=== PATIENT | female | born 1965 | race Caucasian/White ===

== ENCOUNTER → 2021-01-23 15:31 | Outpatient (CLI) | payer BC, SELFPAY ==
--- NOTE | ~2021-01-23 | MM_ITS ---
EXAMINATION: MM screening [facility] BI w mamadou HISTORY: Screening mammogram TECHNIQUE: Craniocaudal and mediolateral oblique 3-D tomosynthesis images were obtained and synthetic 2-D images were generated. CAD analysis was submitted and interpreted. COMPARISON: 12/26/2019, 12/12/2018, 11/29/2017 BREAST PARENCHYMAL COMPOSITION: The breasts are heterogeneously dense, which may obscure small masses . FINDINGS: There is no evidence of suspicious mass, calcification, or architectural distortion to sugg est malignancy in either breast. There has been no suspicious interval change. IMPRESSION: 1. No mammographic evidence of malignancy. 2. Recommend routine screening mammography in one year. BI-RADS Category 1: Negative Reviewed, dictated and finalized at location A. MENT LETTERER
== END ==
PROVIDERS: Visit Provider Nurse Practitioner
DX: Z12.31 Encounter for screening mammogram for malignant neoplasm of breast (principal)
CPT/HCPCS: 77063; 77067

== ENCOUNTER → 2022-02-22 12:44 | Outpatient (CLI) | payer BC, SELFPAY ==
--- NOTE | ~2022-02-22 | MM_ITS ---
EXAMINATION: MM screening [facility] BI w mamadou HISTORY: Screening mammogram TECHNIQUE: Craniocaudal and mediolateral oblique 3-D tomosynthesis images were obtained and synthetic 2-D images were generated. CAD analysis was submitted and interpreted. COMPARISON: January 23, 2021, December 16, 2019, December 12, 2018 bilateral screening mammogram [facility] BREAST PARENCHYMAL COMPOSITION: The breasts are heterogeneously dense, which may obscure small masses . FINDINGS: There is no evidence of suspicious mass, calcification, or architectural distortion to sugg est malignancy in either breast. There has been no suspicious interval change. IMPRESSION: 1. No mammographic evidence of malignancy. 2. Recommend routine screening mammography in one year. BI-RADS Category 1: Negative Reviewed, dictated and finalized at location A.
== END ==
PROVIDERS: PCP Family Medicine; Visit Provider Obstetrics & Gynecology Gynecology
DX: Z12.31 Encounter for screening mammogram for malignant neoplasm of breast (principal)
CPT/HCPCS: 77063; 77067

== ENCOUNTER → 2022-03-27 13:12 | Outpatient (CLI) | payer BC, SELFPAY ==
--- NOTE | ~2022-03-27 | DEXA_ITS ---
Bone Density Report Name: DASHAWN OSBORN Age: 56 Sex: Female Ethnicity: White Date of : 1965 Indication: osteopenia; monitoring treatment; height loss; prior fracture; postmenopausal Referring Provider: Coleen, Rowan Study: Bone densitometry was performed. Exam Date: March 27, 2022 Accession number: [id number] Bone Density: Region BMD T-score Z-score Classification AP Spine (L1-L4) 1.058 0.1 1.4 Normal Femoral Neck (Left) 0.757 -0.8 0.4 Normal Total Hip (Left) 0.807 -1.1 -0.2 Osteopenia Femoral Neck (Right) 0.716 -1.2 0.0 Osteopenia Total Hip (Right) 0.790 -1.2 -0.4 Osteopenia Total Hip Mean 0.799 -1.2 -0.3 Osteopenia World Health Organization criteria for BMD impression classify patients as: Normal (T-score at or above -1.0), Osteopenia (T-score between -1.0 and -2.5), or Osteoporosis (T-score at or below -2.5). 10-year Fracture Risk: FRAX not reported because: Treated for osteoporosis Previous Exams: Region Exam Age BMD T-score BMD Change BMD Change Date g/cm2 vs Baseline vs Previous AP Spine(L1-L4) 03/27/2022 56 1.058 0.1 0.139 0.031* 12/12/2018 53 1.026 -0.2 0.107 0.049* 11/27/2016 51 0.977 -0.6 0.058 0.002 11/22/2014 49 0.975 -0.7 0.057 0.010 10/20/2012 47 0.966 -0.7 0.047 0.021 10/11/2010 45 0.945 -0.9 0.026 0.007 10/08/2008 43 0.938 -1.0 0.019 0.019 01/07/2003 37 0.919 -1.2 Total Hip(Left) 03/27/2022 56 0.807 -1.1 -0.031 0.019 12/12/2018 53 0.788 -1.3 -0.050 0.036* 11/27/2016 51 0.752 -1.6 -0.087 -0.012 11/22/2014 49 0.765 -1.5 -0.074 -0.007 10/20/2012 47 0.772 -1.4 -0.067 0.035* 10/11/2010 45 0.737 -1.7 -0.102 -0.006 10/08/2008 43 0.743 -1.6 -0.096 0.019 04/20/2004 38 0.724 -1.8 -0.115* -0.115* 01/07/2003 37 0.839 -0.8 Total Hip(Right) 03/27/2022 56 0.790 -1.2 0.064 0.025 12/12/2018 53 0.766 -1.4 0.039 0.022 11/27/2016 51 0.744 -1.6 0.018 0.002 11/22/2014 49 0.742 -1.6 0.016 0.018 10/20/2012 47 0.724 -1.8 -0.002 -0.018 10/11/2010 45 0.742 -1.6 0.016 0.017 10/08/2008 43 0.724 -1.8 -0.002 -0.004 04/20/2004 38 0.729 -1.7 0.002 0.002 01/07/2003 37 0.726 -1.8
== END ==
PROVIDERS: PCP Family Medicine; Visit Provider Nurse Practitioner
DX: Z13.820 Encounter for screening for osteoporosis (principal); M85.851 Other specified disorders of bone density and structure, right thigh; M85.852 Other specified disorders of bone density and structure, left thigh
CPT/HCPCS: 77080

== ENCOUNTER → 2022-05-31 16:55 | Outpatient (CLI) | payer BC, SELFPAY ==
--- NOTE | ~2022-05-31 | XR_ITS ---
XR chest 2V DATE: 05/31/2022 17:57 INDICATION: Cough TECHNIQUE: 2 views COMPARISON: None FINDINGS: Normal heart size. No hilar or mediastinal enlargement. There is moderate hyperinflation of the lungs. No pulmonary infiltrate or consolidation, pleural effusion or pulmonary vascular congesti on or pneumothorax is detected. Osteopenia. Mild levoscoliosis and degenerative spurring of the thoracic spine. IMPRESSION: Moderate hyperinflation; no active cardiopulmonary disease Reviewed, dictated and finalized at location B.
== END ==
PROVIDERS: PCP Family Medicine; Visit Provider Family Medicine
DX: R05.9 Cough, unspecified (principal); M41.9 Scoliosis, unspecified; M85.88 Other specified disorders of bone density and structure, other site
CPT/HCPCS: 71046

== ENCOUNTER 2022-06-13 01:12 | Observation (INO) | payer BC, SELFPAY ==
[2022-06-13] VITALS (20 sets, daily range): BP systolic 109–145; BP diastolic 26–89; PULSE 74–122; RESP 18–28; TEMP 36.1–37.1; O2SAT 93–100; BMI 27.4
--- NOTE | ~2022-06-13 | XR_ITS ---
EXAMINATION: XR chest 1V portable DATE: 06/13/2022 01:37 INDICATION: Cough. TECHNIQUE: A single frontal view of the chest was obtained. COMPARISON: Chest 2 views 05/31/2022 FINDINGS: The chest demonstrates clear lungs without pneumonia, pleural effusion, or pneumothorax. Th e heart size is normal. There is an old healed fracture of left clavicle. IMPRESSION: 1. No acute cardiopulmonary disease. Reviewed, dictated and finalized at location A.
[2022-06-13] MEDS: IPRATROPIUM BR 0.02% INH SOLN 0.5 MG/2.5 ML VIAL 1.5 MG INHALATION (01:43)
[2022-06-13] MEDS: ALBUTEROL SULFATE NEB 2.5 MG/3 ML INH 15 MG INHALATION (01:44)
--- NOTE | 2022-06-13 01:49 | ED.GENADULT ---
HPI - General Adult General Chief complaint: Upper Respiratory Infection Stated complaint: cough Time Seen by Provider: 06/13/22 01:20 History of Present Illness HPI narrative: Patient is a 56-year-old female who presents ER with cough. Patient diagnosed with COVID on 05/16/2022. She was placed on antivirals. She was doing well but then developed a cough later on. She was then on steroids. She has been using nebulizer at home. She is also been using an inhaler. She reports that she finished the steroids 3 days ago and then cough returned 2 days ago. Cough is been progressing throughout the day. Nonproductive. No fevers or chills or sweats. No sinus congestion or sore throat. No chest pain or chest pressure. Related Data Home Medications Medication Instructions Recorded Confirmed ergocalciferol (vitamin D2) 1,250 50,000 unit PO WEEKLY 12/09/19 06/13/22 mcg (50,000 unit) capsule (Vitamin D2) estradiol 1 mg tablet 1 mg PO DAILY 12/09/19 06/13/22 levothyroxine 50 mcg tablet 50 mcg PO DAILY 12/09/19 06/13/22 (Synthroid) medroxyprogesterone 5 mg tablet 5 mg PO DAILY 12/09/19 06/13/22 multivitamin 1 tablet PO DAILY 12/09/19 06/13/22 venlafaxine 37.5 mg tablet 37.5 mg PO DAILY 12/09/19 06/13/22 spironolactone 50 mg tablet 100 mg PO DAILY 02/14/22 06/13/22 Allergies Allergy/AdvReac Type Severity Reaction Status Date / Time No Known Allergies Allergy Unknown Verified 06/13/22 10:00 Review of Systems Review of Systems: All systems reviewed & are unremarkable except as noted in HPI and below Constitutional: Constitutional: Denies chills, Denies fatigue and Denies fever(s) ENT: Denies nasal congestion and Denies sore throat Cardiovascular: Cardiovascular: Denies chest pain, Denies rapid heart rate and Denies radiating jaw, neck or arm pain Respiratory: Respiratory: Denies chest congestion, Reports cough, Denies dyspnea and Denies wheezing Gastrointestinal: Gastrointestinal: Denies abdominal pain, Denies nausea and Denies vomiting [facility] Past Medical History Medical History (Updated 06/13/22 @ 09:57 by Jami Reyes PA-C) Anxiety Hypertension Hypothyroid Surgical History Surgical History S/P breast biopsy S/P dilatation and curettage retained placenta S/P knee surgery S/P laparoscopy Family History Family History (Updated 06/13/22 @ 09:49 by Afua Morales RN) Grandparent Family history of coronary artery disease Cerebrovascular accident Mother Lung cancer Grandparent Carcinoma of colon Social History Social History (Updated 06/13/22 @ 09:45 by Jami Reyes PA-C) Smoking status: Never smoker Second hand tobacco smoke exposure: No Alcohol intake: current Drinks per week: 35 Alcohol use details: drinks 4-5 light beers daily Substance use: never Spiritual care concerns: No Exam Narrative: GENERAL: Well-appearing, well-nourished, and in no acute distress. HEAD: Normocephalic, atraumatic. EYES: PERRL and EOMI. ENT: Mucous membranes moist. CHEST: Clear to auscultation. No respiratory distress. HEART: Regular rate and rhythm. Normal peripheral pulses. ABDOMEN: Soft, nontender, nondistended. EXTREMITIES: Normal range of motion. No edema. SKIN: Warm, dry, no rash. NEURO: Alert and oriented x3. PSYCH: Normal mood and affect. Course Course Emergency Course: Patient with frequent coughing but somewhat improved after first hour-long. A second hour-long nebulizer was provided as well as oral prednisone. X-ray without pneumonia. Patient still persistently coughing where she can barely talk. We will plan admission for observation and IV steroids. Vital Signs Vital signs: Vital Signs Temperature 97.0 F L 06/13/22 01:15 Pulse Rate 93 06/13/22 01:15 Respiratory Rate 28 H 06/13/22 01:15 Blood Pressure 142/89 H 06/13/22 01:15 Pulse Oximetry 96 06/13/22 01:15 Oxygen Delivery Room Air
[2022-06-13] MEDS: LIDOCAINE HCL 2% VISC SOLN 15 ML UDC PO (03:54)
[2022-06-13] MEDS: ALBUTEROL SULFATE NEB 2.5 MG/3 ML INH 10 MG INHALATION (04:17)
[2022-06-13] MEDS: predniSONE 40 MG, predniSONE 10 MG 50 MG PO (05:02)
[2022-06-13 05:12] LABS: Basophils Absolute Auto 0.1 K/mm3 (0.0-0.1); Basophils Percent Auto 0.4 % (0.2-1.2); Eosinophils Absolute Auto 0.2 K/mm3 (0-0.3); Eosinophils Percent Auto 1.4 % (0-4.4); Hematocrit 36.4 % (37.0-47.0); Hemoglobin 11.7 g/dL (12.0-15.0); Immature Granulocyte Absolute 0.07 K/mm3 (0.00-0.031); Immature Granulocyte Percent A 0.5 % (0-0.5); Lymphocytes Absolute Auto 1.11 K/mm3 (0.9-3.2); Lymphocytes Percent Auto 8.1 % (18.3-44.2); Mean Corpuscular HGB Conc 32.1 g/dl (32-36); Mean Corpuscular Hemoglobin 31.6 pg (26-34); Mean Corpuscular Volume 98.4 fl (80-100); Mean Platelet Volume 9.7 fl (7.4-10.4); Monocytes Percent Auto 7.2 % (2.6-8.5); Neutrophils Absolute Auto 11.3 K/mm3 (1.3-6.7); Neutrophils Percent Auto 82.4 % (45.5-73.1); Platelet Count Result 280 k/mm3 (150-375); Red Cell Distribution Width 14.3 % (11.5-14.5); White Blood Count 13.7 K/mm3 (4.5-10.0)
[2022-06-13 05:21] LABS: Anion Gap 10 mmol/L (8-16); Blood Urea Nitrogen 17 mg/dL (7-17); Calcium 8.7 mg/dL (8.4-10.2); Carbon Dioxide 21 mmol/L (22-30); Chloride 98 mmol/L (98-107); Estimated CRCL calculation 70 ml/min; Estimated Glomerular Filt Rate > 60; Glucose 129 mg/dL (65-110); Potassium 4.1 mmol/L (3.4-5.0); Sodium 129 mmol/L (137-145)
[2022-06-13 05:48] LABS: SARS-CoV-2 RNA PCR Positive
--- NOTE | 2022-06-13 06:08 | PC.NURSE ---
Patient upset at this RN because she wants the antiviral infusion to get rid of her COVID and wants print outs of her chest XRay and labs so she has a printed copy. THis RN informed her we can give her the patient portal information and the doctor to come in and talk to him.
--- NOTE | 2022-06-13 08:20 | ADMGEN ---
This patient, Mariel Miranda, was admitted to 2 Medical Room 244-. Patient/family oriented to hospital policies and general routines including ID bracelet, bed and alarms, visiting hours, pain management, procedures, bathroom and other care routines, personal items, smoking policy, room service/diet, and visiting hours. Information on how to activate the Rapid Response Team has been discussed. Patient/Family are encouraged to report perceived risks to care and to ask questions if they do not understand what they are told or what they should do.
--- NOTE | 2022-06-13 09:26 | PM.IMHP ---
H&P: HPI History of Present Illness Date/Time: 06/13/22 09:26 Chief Complaint: cough Narrative: Pt is a 56 yo female w/ hx of HTN and anxiety who presented to the ED for persistent/violent cough. Pt states she was diagnosed with covid on 05/16/22. She underwent 5 days of treatment with Paxlovid and was doing okay. She had a cough but it was mild. She states about 2 weeks ago her cough returned worse which prompted her to make an appt with her pcp on 06/06/22 at which time she was given a 5 day course of Prednisone 40 mg daily. She had some improvement but states as soon as she finished the steroid 2 days ago the cough came back even worse. It is non productive but so frequent and violent that she has been unable to sleep and can barely speak in complete sentences. She has been using a rescue inhaler and nebulizer at home with minimal relief. She denies associated symptoms such as sob, chest pain, nasal congestion, rhinorrhea, fever, chills. Lifelong non smoker, no hx of asthma or copd. CXR on 05/31/22 showed hyperinflation of the lungs which has her concerned and she would like a consult from our pulmonology group. CXR today was read as normal. Pt was given breathing treatments in the ED with little relief and is being admitted as observation status for further evaluation and treatment. Review of Systems Review of Systems: General: Denies fevers Eyes: Denies vision changes ENT: Denies nasal congestion or sore throat Respiratory: + cough Cardiovascular: Denies chest pain or lower extremity edema Gastrointestinal: Denies abdominal pain, vomiting, or diarrhea Genitourinary: Denies dysuria Musculoskeletal: Denies back pain Neurological: Denies headache or motor weakness Integumentary: Denies rash PMFSH Past Medical History Medical History (Updated 06/13/22 @ 09:57 by Jami Reyes PA-C) Anxiety Hypertension Hypothyroid Surgical History Surgical History S/P breast biopsy S/P dilatation and curettage retained placenta S/P knee surgery S/P laparoscopy Family History Family History (Updated 06/13/22 @ 09:49 by Afua Morales RN) Grandparent Family history of coronary artery disease Cerebrovascular accident Mother Lung cancer Grandparent Carcinoma of colon Social History Social History (Updated 06/13/22 @ 09:45 by Jami Reyes PA-C) Smoking status: Never smoker Second hand tobacco smoke exposure: No Alcohol intake: current Drinks per week: 35 Alcohol use details: drinks 4-5 light beers daily Substance use: never Spiritual care concerns: No Meds Home Medications and Allergies Home Medications Medication Instructions Recorded Confirmed Type ergocalciferol (vitamin D2) 1,250 50,000 unit PO WEEKLY 12/09/19 06/13/22 History mcg (50,000 unit) capsule (Vitamin D2) estradiol 1 mg tablet 1 mg PO DAILY 12/09/19 06/13/22 History levothyroxine 50 mcg tablet 50 mcg PO DAILY 12/09/19 06/13/22 History (Synthroid) medroxyprogesterone 5 mg tablet 5 mg PO DAILY 12/09/19 06/13/22 History multivitamin 1 tablet PO DAILY 12/09/19 06/13/22 History venlafaxine 37.5 mg tablet 37.5 mg PO DAILY 12/09/19 06/13/22 History spironolactone 50 mg tablet 100 mg PO DAILY 02/14/22 06/13/22 History losartan 50 mg tablet 50 mg PO DAILY 3 months #90 tabs 05/22/22 06/13/22 Rx albuterol sulfate 90 mcg/actuation 2 puff inhalation Q4H PRN 05/31/22 06/13/22 Rx aerosol inhaler shortness of breath or wheezing #8.5 grams ipratropium 0.5 mg-albuterol 3 mg 3 ml inhalation Q6H PRN shortness 06/06/22 06/13/22 Rx (2.5 mg base)/3 mL nebulization of breath or wheezing #180 mL soln promethazine 6.25 mg-codeine 10 5 ml PO QHS PRN cough #118 mL 06/06/22 06/13/22 Rx mg/5 mL syrup Allergies Allergy/AdvReac Type Severity Reaction Status Date / Time No Known Allergies Allergy Unknown Verified 06/13/22 10:00 Vital Signs Vital S
[2022-06-13] MEDS: guaiFENesin/CODEINE (*CRX) 200/20 MG 10 ML SYRUP PO ×3 (09:46→16:24)
[2022-06-13] MEDS: ERGOCALCIFEROL 50,000 UNIT CAPSULE 50000 UNITS PO (11:07)
[2022-06-13] MEDS: methylPREDNISolone SOD SUCC 125 MG VIAL 60 MG IV PUSH (11:08)
[2022-06-13] MEDS: MULTIVITAMINS THERAPEUTIC TAB (*BKC) 1 TABLET PO (11:55)
[2022-06-13] MEDS: VENLAFAXINE HCL 37.5 MG TABLET PO (11:55)
[2022-06-13] MEDS: SPIRONOLACTONE 50 MG TABLET 100 MG PO (11:55)
[2022-06-13] MEDS: THIAMINE HCL 100 MG TABLET PO (11:56)
[2022-06-13] MEDS: LOSARTAN POTASSIUM 50 MG TABLET PO (11:56)
[2022-06-13] MEDS: FOLIC ACID 0.4 MG TABLET PO (11:56)
[2022-06-13] MEDS: estradioL 1 MG TABLET PO (11:56)
--- NOTE | 2022-06-13 13:41 | PM.CNPUL ---
Assessment and Plan Assessment and plan (1) COVID-19: Code(s): U07.1 - COVID-19 Status: Acute Assessment and Plan: She was diagnosed with COVID-19 on May 16, and has not had a return to baseline since. She has a (+) COVID serology today June 13. Her initial symptoms and testing occurred in the last 30 days, so she is still considered acute COVID-19. She was treated with Paxlovid, anti-viral combination May 16, and had rebound COVID when the medication was completed. This is a recognized pattern after the completion of this drug. She required oral steroid taper on June 06, worsened when it was completed. Her CXR is clear, and her lung exam is unimpressive. I do not hear any signs of consolidation, no crackles. COVID has taken us into uncharted territories. There is no clear plan for these situations. PLAN: Start inhaled steroid; dual ICS and LABA, Advair, which she can continue after discharge. This is on our formulary. She can be on any dual ICS-LABA covered by her insurance. Wean solu-medrol, now 80 mg IV Q 6 hours; I changed to 40 mg IV Q 8 hours. Conver to oral tomorrow. Tessalon perles 100 mg TID. I agree with your hydrocodone-acetaminophen pills for pain and guaifenesin-codeine syrup for coughing. Omeprazole 20 mg BID before meals. She has an intense paroxysmal cough which might be leading to reflux and more coughing. I will check labs in the am to make sure her COVID markers are not elevated, AST ALT LDH CRP and Magnesium level. Correcting low magnesium can improve asthma exacerbations. She does not have asthma, however she has had prolonged albuterol treatments, can drop K+ and in turn drop Magnesium; she has several alcoholic beverages a day, and may have low Magnesium at baseline due to alcohol use. I am throwing everything at her at once to get the coughing under control. She was coughing so hard that it was unpleasant to be in the room. She is oxygenating normally on room air. After discharge, she can follow up in the office with eventual testing to see if she has any intermediate changes in her PFTs due to COVID. History of Present Illness History of Present Illness Consult date: 06/13/22 Chief complaint: bronchitis Narrative: Patient was seen at 13:50 June 13, 2022 NEW CONSULT: Mariel Miranda is a 56 year old female with hypertension admitted with intractable cough associated with recent COVID infection. She developed symptoms and a positive COVID serology on May 16, called her primary care doctor González and was started on Paxlovid which was helpful, last dose was May 22. Over the next 3-4 ays, she started having increased non-productive coughing which increased. She called her primary, and on June 06 was started on a steroid taper which improved symptoms. This was completed on SaturdayJune 10. On SaturdayJune 11 or symptoms intensified. She has been coughing nonstop, has not been able to sleep. She presented to the emergency department with a clear CXR, WBC 13.7; saturation is normal on room air. She had improvement with 2 [id number]-synp albuterol nebulized treatments. She is in room 244, feels slightly better. Still, she coughed almost non-stop while I was in there. She developed COVID on a trip to [facility] in the [facility] with her daughter and 4 others. She and her daughter shared a room, they were the only sick ones on the trip. Her did not travel. She did not have fever, chills, sore throat, loss of taste or smell, did not have any significant shortness of breath. She had little diarrhea but no nausea or vomiting. She did not have myalgias. She is physically active, walks 5 miles several times a week and she gardens. 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 Her white blood cell count is 13.7 with 82% neutrophils. Sodium is 129, BUN 17 creatinine 0.8. CXR Today 06/13/2022 ; no acute disease Review of Systems Review of Systems:
[2022-06-13] MEDS: IPRATROPIUM BR 0.02% INH SOLN 0.5 MG/2.5 ML VIAL INHALATION ×2 (14:17→21:34)
[2022-06-13] MEDS: ALBUTEROL SULFATE NEB 2.5 MG/3 ML INH 5 MG INHALATION ×2 (14:17→21:34)
[2022-06-13] MEDS: PANTOPRAZOLE 40 MG TABLET PO (16:22)
[2022-06-13] MEDS: BENZONATATE 100 MG CAPSULE PO (16:22)
[2022-06-13] MEDS: methylPREDNISolone SOD SUCC 40 MG VIAL IV PUSH (21:00)
[2022-06-13] MEDS: FLUTICASONE PROPIONATE 0.05% NA SPR 16 GM BTL (*BKC) 1 SPRAY NASAL (21:00)
[2022-06-13] MEDS: FLUTICASONE/SALMETEROL 115-21 MCG INHALER 1 PUFF 2 PUFF INHALATION (21:35)
[2022-06-13] MEDS: guaiFENesin/DEXTROMETHORPHAN 10 ML UDC 5 ML PO (22:53)
[2022-06-14] VITALS (16 sets, daily range): BP systolic 111–141; BP diastolic 58–88; PULSE 75–100; RESP 16–20; TEMP 36.4–36.9; O2SAT 96–99
[2022-06-14] MEDS: IPRATROPIUM BR 0.02% INH SOLN 0.5 MG/2.5 ML VIAL INHALATION ×4 (03:06→20:04)
[2022-06-14] MEDS: ALBUTEROL SULFATE NEB 2.5 MG/3 ML INH 5 MG INHALATION ×3 (03:06→14:06)
[2022-06-14] MEDS: methylPREDNISolone SOD SUCC 40 MG VIAL IV PUSH ×3 (05:27→21:02)
[2022-06-14] MEDS: LEVOTHYROXINE SODIUM 50 MCG TABLET PO (05:27)
[2022-06-14] MEDS: guaiFENesin/DEXTROMETHORPHAN 10 ML UDC 5 ML PO ×2 (05:27→22:13)
[2022-06-14 06:43] LABS: Basophils Percent Auto 0.2 % (0.2-1.2); Hematocrit 35.3 % (37.0-47.0); Hemoglobin 11.6 g/dL (12.0-15.0); Immature Granulocyte Absolute 0.07 K/mm3 (0.00-0.031); Immature Granulocyte Percent A 0.5 % (0-0.5); Lymphocytes Absolute Auto 0.66 K/mm3 (0.9-3.2); Lymphocytes Percent Auto 5.2 % (18.3-44.2); Mean Corpuscular HGB Conc 32.9 g/dl (32-36); Mean Corpuscular Hemoglobin 31.6 pg (26-34); Mean Corpuscular Volume 96.2 fl (80-100); Mean Platelet Volume 10.5 fl (7.4-10.4); Monocytes Absolute Auto 0.9 K/mm3 (0.1-0.6); Monocytes Percent Auto 7.1 % (2.6-8.5); Neutrophils Absolute Auto 11.1 K/mm3 (1.3-6.7); Platelet Count Result 291 k/mm3 (150-375); Red Blood Count 3.67 M/mm3 (4.2-5.4); Red Cell Distribution Width 14.2 % (11.5-14.5); White Blood Count 12.7 K/mm3 (4.5-10.0)
[2022-06-14 07:00] LABS: Alkaline Phosphatase 57 U/L (38-126); Anion Gap 8 mmol/L (8-16); Aspartate Amino Transferase 49 U/L (14-36); Blood Urea Nitrogen 14 mg/dL (7-17); CRP 4.5 mg/dL (<1.0); Calcium 8.4 mg/dL (8.4-10.2); Carbon Dioxide 22 mmol/L (22-30); Chloride 101 mmol/L (98-107); Estimated CRCL calculation 79 ml/min; Estimated Glomerular Filt Rate > 60; Glucose 152 mg/dL (65-110); Lactate Dehydrogenase 488 U/L (313-618); Magnesium 2.1 mg/dL (1.6-2.3); Potassium 4.1 mmol/L (3.4-5.0); Sodium 131 mmol/L (137-145)
[2022-06-14] MEDS: estradioL 1 MG TABLET PO (08:09)
[2022-06-14] MEDS: FLUTICASONE PROPIONATE 0.05% NA SPR 16 GM BTL (*BKC) 1 SPRAY NASAL ×2 (08:09→21:02)
[2022-06-14] MEDS: BENZONATATE 100 MG CAPSULE PO ×2 (08:09→13:47)
[2022-06-14] MEDS: GABAPENTIN 100 MG CAPSULE PO ×2 (08:10→13:47)
[2022-06-14] MEDS: FOLIC ACID 0.4 MG TABLET PO (08:10)
[2022-06-14] MEDS: LOSARTAN POTASSIUM 50 MG TABLET PO (08:10)
[2022-06-14] MEDS: MULTIVITAMINS THERAPEUTIC TAB (*BKC) 1 TABLET PO (08:11)
[2022-06-14] MEDS: SPIRONOLACTONE 50 MG TABLET 100 MG PO (08:12)
[2022-06-14] MEDS: THIAMINE HCL 100 MG TABLET PO (08:12)
[2022-06-14] MEDS: PANTOPRAZOLE 40 MG TABLET PO ×2 (08:12→16:55)
[2022-06-14] MEDS: VENLAFAXINE HCL 37.5 MG TABLET PO (08:13)
[2022-06-14] MEDS: FLUTICASONE/SALMETEROL 115-21 MCG INHALER 1 PUFF 2 PUFF INHALATION (08:23)
--- NOTE | 2022-06-14 11:26 | PM.IMPN ---
Progress Note: A&P Assessment and Plan (1) Cough: Code(s): R05.9 - Cough, unspecified Status: Acute Assessment and Plan: -tested positve for covid 1 month ago -completed 5 day course of prednisone, cough worsened shortly after completion -CXR shows no acute cardiopulmonary abnormality -cough is so violent she is unable to speak in complete sentences, however oxygen saturations remain normal -continue IV solumedrol 60 mg q6 hr, decreased to 40 mg q8hr but pt states this is not working as well -continue nebs q6hr -pulm consulted, added gabaentin, steroid nasal spray, advair, tessalon pearls (2) COVID-19: Code(s): U07.1 - COVID-19 Status: Acute Assessment and Plan: -as above -tested positive 1 month ago and again on arrival (3) EtOH dependence: Code(s): F10.20 - Alcohol dependence, uncomplicated Status: Acute Assessment and Plan: -drinks 4-5 light beers daily -no hx of withdrawal symptoms -b12 WNL -folate pending -continue thiamine and folate supplements -monitor for withdrawal symptoms Subjective Date/time seen: 06/14/22 11:26 Interval history: Pt is a 56 yo female w/ hx of HTN and anxiety, recent diagnosis of covid 1 month ago, who presented to the ED for persistent/violent cough. Pt still continues to cough so hard she has trouble completing sentences. She is still maintaining her oxygen sats and feels like she can take a deeper breath now. She feels concerned that we decreased her steroid dose because she states the 40 mg did not do much, however she did get relief from the 80 mg IV solumedrol yesterday. No chest pain. Also notes she felt a bit jittery after the Advair this AM. Review of Systems Review of Systems: All systems reviewed & are unremarkable except as noted in HPI and below Exam Narrative: General: no acute distress, non toxic appearing Eyes: PERRL, no scleral icterus HEENT: NCAT, external ears normal, MMM Respiratory: lungs clear bilaterally, persistent cough preventing her from speaking in full sentences, no wheezing Cardiovascular: RRR, no murmur Abdominal: Soft, nontender, non distended, no rebound or guarding Musculoskeletal: Moves all 4 extremities, no edema Neurological: A/Ox3, speech clear, no facial asymmetry Skin: Warm, dry, no rashes Psychiatric: Normal affect, normal mood Objective Data Vital Signs Vital Signs: Vital Signs - 24 hr 06/13/22 12:00 06/13/22 13:57 06/13/22 14:15 Temperature 98.4 F Pulse Rate 88 74 Respiratory Rate 20 20 Blood Pressure 128/83 Pulse Oximetry 97 98 Oxygen Delivery Room Air 06/13/22 14:21 06/13/22 14:00 06/13/22 18:00 Temperature 98.6 F 98.4 F Pulse Rate 83 86 84 Respiratory Rate 20 20 20 Blood Pressure 130/80 130/26 L Pulse Oximetry 97 97 Oxygen Delivery 06/13/22 19:32 06/13/22 20:00 06/13/22 21:38 Temperature 97.6 F Pulse Rate 84 Respiratory Rate 20 Blood Pressure 145/65 H Pulse Oximetry 97 95 Oxygen Delivery Room Air Room Air 06/13/22 23:27 06/13/22 21:38 06/14/22 03:09 Temperature 97.6 F Pulse Rate 98 82 75 Respiratory Rate 20 20 20 Blood Pressure 132/68 Pulse Oximetry 97 Oxygen Delivery 06/13/22 21:55 06/14/22 04:19 06/14/22 03:27 Temperature 97.9 F Pulse Rate 87 91 79 Respiratory Rate 20 18 20 Blood Pressure 136/74 Pulse Oximetry 98 Oxygen Delivery 06/14/22 08:20 06/14/22 08:29 06/14/22 08:29 Temperature Pulse Rate 100 100 Respiratory Rate 20 20 Blood Pressure Pulse Oximetry 96 Oxygen Delivery Room Air 06/14/22 10:00 06/14/22 08:10 Temperature 97.6 F Pulse Rate 87 Respiratory Rate 16 Blood Pressure 125/58 L Pulse Oximetry 99 96 Oxygen Delivery Room Air Intake/Output Intake/Output: Intake & Output 06/11/22 06/12/22 06/13/22 06/14/22 23:59 23:59 23:59 23:59 Intake Total 1704 640 Output Total 3600 800 Balance -1896 -160 M
--- NOTE | 2022-06-14 14:45 | PM.PNPUL ---
Progress Note: A&P Assessment and Plan (1) COVID-19: Code(s): U07.1 - COVID-19 Status: Acute Assessment and Plan: June 13, 2022 -She was diagnosed with COVID-19 on May 16, and has not had a return to baseline since. She has a (+) COVID serology today June 13. Her initial symptoms and testing occurred in the last 30 days, so she is still considered acute COVID-19. She was treated with Paxlovid, anti-viral combination May 16, and had rebound COVID when the medication was completed. This is a recognized pattern after the completion of this drug. She required oral steroid taper on June 06, worsened when it was completed. Her CXR is clear, and her lung exam is unimpressive. I do not hear any signs of consolidation, no crackles. COVID has taken us into uncharted territories. There is no clear plan for these situations. June 14, 2022- Increase doses of meds; Advair was 115 now 221; increase benzonatate to 200 TID, increase gabapentin 200 TID Continue IV solumedrol 40 mg IV Q8 hr, may be able to go to oral tomorrow She is off hydrocodone-acetaminophen and guaifenesin-codeine syrup for coughing. Continue omeprazole 20 mg BID before meals for intense paroxysmal cough which might be leading to reflux and more coughing. I will check labs in the am to make sure her COVID markers are not elevated, AST ALT LDH CRP and Magnesium level. Her labs are normal, magnesium is 2.1, AST minimally increased, CRP 4.5, elevated a little After discharge, she can follow up in the office with eventual testing to see if she has any longterm changes in her PFTs due to COVID. Subjective Date/time seen: 06/14/22 14:45 Interval history: Hospital follow up: June 13 - consult date- Mariel Miranda is a 56 year old female with hypertension admitted with intractable cough associated with recent COVID infection.? She developed symptoms and a positive COVID serology on May 16, called her primary care doctor González and was started on Paxlovid which was helpful, last dose was May 22. Over the next 3-4 ays, she started having increased non-productive coughing which increased. She called her primary, and on June 06 was started on a steroid taper which improved symptoms.? This was completed on SaturdayJune 10.? On SaturdayJune 11 or symptoms intensified.? She has been coughing nonstop, has not been able to sleep.? She presented to the emergency department with a clear CXR, WBC 13.7; saturation is normal on room air.? She had improvement with 2 [id number] albuterol nebulized treatments.? She is in room 244, feels slightly better. Still, she coughed almost non-stop while I was in there. She developed COVID on a trip to [facility] in the [facility] with her daughter and 4 others. She and her daughter shared a room, they were the only sick ones on the trip. Her did not travel. She did not have fever, chills, sore throat, loss of taste or smell, did not have any significant shortness of breath.? She had little diarrhea but no nausea or vomiting.? She did not have myalgias. She is physically active, walks 5 miles several times a week and she gardens. 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 Her white blood cell count is 13.7 with 82% neutrophils.? Sodium is 129, BUN 17 creatinine 0.8. CXR Today 06/13/2022 ; no acute disease June 14, 2022: Intense paroxysmal coughing, worse now than when I saw her yesterday. She has waxing and waning intensity of coughing. Not ready to go home yet. Has almost no sputum. Does not have wheezing on exam. Plan will be increase dose of Advair to 221 from 115, increase gabapentin to 200 TID from 100, and increase benzonanate to 200 TID from 100. Review of Systems Review of Systems: All systems reviewed & are unremarkable except as noted in HPI and below Exam Narrative: GEN: Alert, oriented, constant paroxysmal nonproductive coughing. HEENT: pupils are equal, EOMI, N
[2022-06-14] MEDS: GABAPENTIN 100 MG CAPSULE 200 MG PO (16:55)
[2022-06-14] MEDS: BENZOCAINE/MENTHOL (*BKC) 18 EA LOZENGE 1 LOZENGE PO ×2 (16:55→22:13)
[2022-06-14] MEDS: BENZONATATE 100 MG CAPSULE 200 MG PO (16:55)
[2022-06-14] MEDS: ALBUTEROL SULFATE NEB 2.5 MG/0.5 ML INH 5 MG (20:03)
[2022-06-14] MEDS: FLUTICASONE/SALMETEROL 230-21 MCG INHALER 1 PUFF 2 PUFF INHALATION (20:04)
[2022-06-15] VITALS (7 sets, daily range): BP systolic 117–137; BP diastolic 62–92; PULSE 83–106; RESP 18–20; TEMP 36.2–36.9; O2SAT 95–98
[2022-06-15] MEDS: ALBUTEROL SULFATE NEB 2.5 MG/0.5 ML INH 5 MG (01:06)
[2022-06-15] MEDS: IPRATROPIUM BR 0.02% INH SOLN 0.5 MG/2.5 ML VIAL INHALATION ×2 (01:06→09:23)
[2022-06-15] MEDS: methylPREDNISolone SOD SUCC 40 MG VIAL IV PUSH (05:37)
[2022-06-15] MEDS: LEVOTHYROXINE SODIUM 50 MCG TABLET PO (05:37)
[2022-06-15 05:38] LABS: Basophils Percent Auto 0.1 % (0.2-1.2); Hematocrit 33.4 % (37.0-47.0); Hemoglobin 10.6 g/dL (12.0-15.0); Immature Granulocyte Absolute 0.12 K/mm3 (0.00-0.031); Immature Granulocyte Percent A 0.8 % (0-0.5); Lymphocytes Absolute Auto 0.86 K/mm3 (0.9-3.2); Lymphocytes Percent Auto 5.8 % (18.3-44.2); Mean Corpuscular HGB Conc 31.7 g/dl (32-36); Mean Corpuscular Hemoglobin 31.1 pg (26-34); Mean Corpuscular Volume 97.9 fl (80-100); Monocytes Percent Auto 6.9 % (2.6-8.5); Neutrophils Absolute Auto 12.9 K/mm3 (1.3-6.7); Neutrophils Percent Auto 86.4 % (45.5-73.1); Platelet Count Result 283 k/mm3 (150-375); Red Blood Count 3.41 M/mm3 (4.2-5.4); Red Cell Distribution Width 14.6 % (11.5-14.5); White Blood Count 14.9 K/mm3 (4.5-10.0)
[2022-06-15 05:49] LABS: Alanine Aminotransferase 34 U/L (6-35); Albumin Level 3.6 g/dL (3.5-5.1); Alkaline Phosphatase 54 U/L (38-126); Anion Gap 5 mmol/L (8-16); Aspartate Amino Transferase 51 U/L (14-36); Bilirubin,Total 0.2 mg/dL (0.2-1.3); Blood Urea Nitrogen 15 mg/dL (7-17); Calcium 8.3 mg/dL (8.4-10.2); Carbon Dioxide 25 mmol/L (22-30); Chloride 102 mmol/L (98-107); Estimated CRCL calculation 79 ml/min; Estimated Glomerular Filt Rate > 60; Glucose 147 mg/dL (65-110); Potassium 4.6 mmol/L (3.4-5.0); Sodium 132 mmol/L (137-145)
[2022-06-15] MEDS: FLUTICASONE PROPIONATE 0.05% NA SPR 16 GM BTL (*BKC) 1 SPRAY NASAL (08:15)
[2022-06-15] MEDS: VENLAFAXINE HCL 37.5 MG TABLET PO (08:15)
[2022-06-15] MEDS: estradioL 1 MG TABLET PO (08:15)
[2022-06-15] MEDS: GABAPENTIN 100 MG CAPSULE 200 MG PO (08:15)
[2022-06-15] MEDS: PANTOPRAZOLE 40 MG TABLET PO (08:16)
[2022-06-15] MEDS: MULTIVITAMINS THERAPEUTIC TAB (*BKC) 1 TABLET PO (08:16)
[2022-06-15] MEDS: THIAMINE HCL 100 MG TABLET PO (08:16)
[2022-06-15] MEDS: FOLIC ACID 0.4 MG TABLET PO (08:16)
[2022-06-15] MEDS: SPIRONOLACTONE 50 MG TABLET 100 MG PO (08:16)
[2022-06-15] MEDS: LOSARTAN POTASSIUM 50 MG TABLET PO (08:16)
[2022-06-15] MEDS: BENZONATATE 100 MG CAPSULE 200 MG PO (08:16)
[2022-06-15] MEDS: ALBUTEROL SULFATE NEB 2.5 MG/3 ML INH 5 MG INHALATION (09:24)
[2022-06-15] MEDS: FLUTICASONE/SALMETEROL 230-21 MCG INHALER 1 PUFF 2 PUFF INHALATION (09:24)
--- NOTE | 2022-06-15 09:40 | PM.PNPUL ---
Progress Note: A&P Assessment and Plan (1) COVID-19: Code(s): U07.1 - COVID-19 Status: Acute Assessment and Plan: June 13, 2022 -She was diagnosed with COVID-19 on May 16, and has not had a return to baseline since. She has a (+) COVID serology today June 13. Her initial symptoms and testing occurred in the last 30 days, so she is still considered acute COVID-19. She was treated with Paxlovid, anti-viral combination May 16, and had rebound COVID when the medication was completed. This is a recognized pattern after the completion of this drug. She required oral steroid taper on June 06, worsened when it was completed. Her CXR is clear, and her lung exam is unimpressive. I do not hear any signs of consolidation, no crackles. COVID has taken us into uncharted territories. There is no clear plan for these situations. June 14, 2022- Increase doses of meds; Advair was 115 now 221; increase benzonatate to 200 TID, increase gabapentin 200 TID Continue IV solumedrol 40 mg IV Q8 hr, may be able to go to oral tomorrow She is off hydrocodone-acetaminophen and guaifenesin-codeine syrup for coughing. Continue omeprazole 20 mg BID before meals for intense paroxysmal cough which might be leading to reflux and more coughing. I will check labs in the am to make sure her COVID markers are not elevated, AST ALT LDH CRP and Magnesium level. Her labs are normal, magnesium is 2.1, AST minimally increased, CRP 4.5, elevated a little June 15, 2022- Better, ready to go home, same meds she is on now, wean over the next few weeks. She can follow up in the office 3-4 weeks with eventual PFT for any half-way changes in her PFTs due to COVID. Subjective Date/time seen: 06/15/22 09:40 Interval history: Hospital follow up: June 13 - consult date- Mariel Miranda is a 56 year old female with hypertension admitted with intractable cough associated with recent COVID infection.? She developed symptoms and a positive COVID serology on May 16, called her primary care doctor González and was started on Paxlovid which was helpful, last dose was May 22. Over the next 3-4 ays, she started having increased non-productive coughing which increased. She called her primary, and on June 06 was started on a steroid taper which improved symptoms.? This was completed on SaturdayJune 10.? On SaturdayJune 11 or symptoms intensified.? She has been coughing nonstop, has not been able to sleep.? She presented to the emergency department with a clear CXR, WBC 13.7; saturation is normal on room air.? She had improvement with 2 [id number] albuterol nebulized treatments.? She is in room 244, feels slightly better. Still, she coughed almost non-stop while I was in there. She developed COVID on a trip to [facility] in the [facility] [place] with her daughter and 4 others. She and her daughter shared a room, they were the only sick ones on the trip. Her did not travel. She did not have fever, chills, sore throat, loss of taste or smell, did not have any significant shortness of breath.? She had little diarrhea but no nausea or vomiting.? She did not have myalgias. She is physically active, walks 5 miles several times a week and she gardens. She works from home, has not felt well enough to get back to [employer] work due to her coughing. CXR Today 06/13/2022 ; no acute disease June 14, 2022: Intense paroxysmal coughing, worse now than when I saw her yesterday. She has waxing and waning intensity of coughing. Not ready to go home yet. Has almost no sputum. Does not have wheezing on exam. Plan will be increase dose of Advair to 221 from 115, increase gabapentin to 200 TID from 100, and increase benzonatate to 200 TID from 100. June 15, 2022 - Better. Less coughing. She can go home with same meds, reduce as tolerated over the next few weeks. She has no wheezing. She can use a humidifier with moist water only QID prn to help redu
--- NOTE | 2022-06-15 09:58 | PM.DS ---
DS: Admitting Diagnosis Discharge Date 06/15/22 Admitting Diagnosis cough DS: Discharge Diagnosis Discharge Diagnosis (1) Cough: Code(s): R05.9 - Cough, unspecified Status: Acute Assessment and Plan: -tested positve for covid 1 month ago -completed 5 day course of prednisone outpatient, cough worsened shortly after completion -CXR shows no acute cardiopulmonary abnormality -cough is so violent she is unable to speak in complete sentences, however oxygen saturations remain normal -continue IV solumedrol 60 mg q6 hr, decreased to 40 mg q8hr, will do another PO steroid taper upon discharge -continue nebs q6hr prn on disharge -pulm consulted, added gabaentin, steroid nasal spray, advair, tessalon pearls, will continue on discharge -doing better today, has continued to maintatin oxygen sats, per pulm pt stable for dischage, will see her in 4 weeks (2) COVID-19: Code(s): U07.1 - COVID-19 Status: Acute Assessment and Plan: -as above -tested positive 1 month ago and again on arrival (3) EtOH dependence: Code(s): F10.20 - Alcohol dependence, uncomplicated Status: Acute Assessment and Plan: -drinks 4-5 light beers daily -no hx of withdrawal symptoms -b12 WNL -folate pending -thiamine and folate supplements -monitored for withdrawal symptoms DS: Summary Hospital Course Reason for hospitalization: Pt is a 56 yo female w/ hx of HTN and anxiety, recent diagnosis of covid 1 month ago, who presented to the ED for persistent/violent cough. Please see HPI for further details. Hospital Course: Please see above for details of hospital course. Time Spent with Patient Time attestation: Total time spent providing and/or coordinating discharge services: Exam Narrative: General: no acute distress, non toxic appearing Eyes: PERRL, no scleral icterus HEENT: NCAT, external ears normal, MMM Respiratory: lungs clear bilaterally, no wheezing Cardiovascular: RRR, no murmur Abdominal: Soft, nontender, non distended, no rebound or guarding Musculoskeletal: Moves all 4 extremities, no edema Neurological: A/Ox3, speech clear, no facial asymmetry Skin: Warm, dry, no rashes Psychiatric: Normal affect, normal mood DS: Data Data Completed and Pending Labs on day of discharge: Labs from last 24 hours 06/15/22 06/15/22 05:14 05:14 WBC 14.9 H RBC 3.41 L Hgb 10.6 L Hct 33.4 L MCV 97.9 MCH 31.1 MCHC 31.7 L RDW 14.6 H Plt Count 283 MPV 10.0 Immature Gran % (Auto) 0.8 H Neut % (Auto) 86.4 H Lymph % (Auto) 5.8 L [place] % (Auto) 6.9 Eos % (Auto) 0.0 Baso % (Auto) 0.1 L Lymph # (Auto) 0.86 L [place] # (Auto) 1.0 H Eos # (Auto) 0.0 Baso # (Auto) 0.0 Abs Immat Gran (auto) 0.12 H Absolute Neuts (auto) 12.9 H Absolute Nucleated RBC 0.0 Nucleated RBC % 0.0 Sodium 132 L Potassium 4.6 Chloride 102 Carbon Dioxide 25 Anion Gap 5 L BUN 15 Creatinine 0.70 Estim Creat Clear Calc 79 Estimated GFR > 60 Glucose 147 H Calcium 8.3 L Total Bilirubin 0.2 AST 51 H ALT 34 Alkaline Phosphatase 54 Total Protein 6.0 L Albumin 3.6 Discharge Plan Discharge Attending physician on discharge: Rodrigo Vo Consulting providers: Charley Perez Discharging Clinician: Jami Reyes Anticipated Discharge Date/Time: 06/15/22 10:04 Patient Disposition: Home, Self-Care Activity: may shower Diet: regular Discharge Instructions: Take all medications as directed. Follow up with pulmonology in 4 weeks. Be sure to get a humidifier for home. Return to ED for any new or worsening symptoms. Patient Instructions: Antibiotic Form Stand Alone Forms: General Discharge Information, Work/School Release IP Follow-up/Referrals: Elizabeth Claudio DO [Primary Care Provider] - 1 Week Charley Perez MD [Physician] - 4 Weeks Discharge Medications:
[2022-06-17 15:14] LABS: Red Blood Cell Folate 829 ng/mL RBC (>280)
== END 2022-06-15 12:34 | disposition home or self-care (01) ==
LOC: ANHED 01:33 → ANH2MED 07:54
PROVIDERS: Admitting Provider Internal Medicine; Emergency Provider Emergency Medicine; PCP Family Medicine; Visit Provider Physician Assistant
DX: U07.1 COVID-19 (principal); F41.9 Anxiety disorder, unspecified; I10 Essential (primary) hypertension; E03.9 Hypothyroidism, unspecified; F10.20 Alcohol dependence, uncomplicated; Z79.899 Other long term (current) drug therapy
CPT/HCPCS: 36415; 71045; 80048; 80053; 82607; 82747; 83615; 83735; 84075; 84450; 85025; 86140; 94640; 96374; 96376; 99285; A9270; C9803; G0378; J2920; J2930; J7512; U0003; U0005

== ENCOUNTER → 2022-07-24 10:04 | Outpatient (CLI) | payer BC, SELFPAY ==
--- NOTE | ~2022-07-24 | US_ITS ---
EXAMINATION: US transvaginal DATE: 07/24/2022 10:37 INDICATION: Postmenopausal bleeding Comparison:11/16/2019 TECHNIQUE: Multiple transabdominal and endovaginal sonographic images of the pelvis performed. FINDINGS: The uterus measures 7.8 x 4.3 x 4.7 cm. The endometrial complex measures 3 mm. There are mu ltiple uterine fibroids, largest measuring 3.4 x 2.3 x 3.2 cm. The ovaries are not visualized. There is no free fluid in the pelvis. There are no abnormal masses seen on either side. IMPRESSION: 1. Multiple uterine fibroids, largest measuring 3.4 cm maximum dimension. Reviewed, dictated and finalized at location A.
== END ==
PROVIDERS: PCP Family Medicine; Visit Provider Obstetrics & Gynecology Gynecology
DX: N95.0 Postmenopausal bleeding (principal); D25.9 Leiomyoma of uterus, unspecified
CPT/HCPCS: 76830

== ENCOUNTER 2022-09-17 08:12 | Outpatient (CLI) | payer BC, SELFPAY ==
--- NOTE | 2022-09-24 17:41 | WPDPFTINT ---
PFT Procedure Performed PFT Procedure Performed Spirometry with Pre/Post Bronchodilator Plethysmography (Lung Vol) Diffusing Cap (DLCO) Flow Vol Loop PFT Interpretation This is a pulmonary function test with pre and post-bronchodilator spirometry, plethysmography and diffusing capacity. The test was performed and results interpreted in accordance with the 2019 and 2005 ATS/ERS Task Force guidelines respectively using the Global Lung Function Initiative-2012 reference equations. Patient demonstrated good effort and cooperation. Reproducibility criteria were met. The quality of the pre bronchodilator spirometry maneuver was Grade A and post bronchodilator spirometry maneuver was Grade A. Findings: Spirometry: The contour the inspiratory and expiratory flow tracing are normal. The pre bronchodilator FVC is 3.81 L, 104% predicted. The pre bronchodilator FEV1 is 2.61 L, 90% predicted. The pre bronchodilator FEV1: FVC ratio 68%. The post bronchodilator FVC is 3.94 L, representing a 3% increase. The post bronchodilator FEV1 is 2.82 L, representing an 8% increase. The post bronchodilator FEV1: FVC ratio 72%. Plethysmography: The total lung capacity is 5.97 L, 105% predicted. Functional residual capacity is 3.24 L, 100% predicted. The residual volume is 1.64 L, 75% predicted. Diffusing capacity: The diffusing capacity unadjusted for hemoglobin and carboxyhemoglobin is 18.1, 78% predicted. The diffusing capacity adjusted for alveolar volume is 3.33, 78% predicted. Impression: The spirometry is normal without evidence of an obstructive abnormality. There is no significant improvement after inhaling a single dose of albuterol. The lung volumes are normal. The diffusing capacity is normal. There are no prior studies for comparison
== END 2022-09-17 08:13 | disposition home or self-care (01) ==
PROVIDERS: PCP Family Medicine; Visit Provider Internal Medicine Critical Care Medicine
DX: R06.02 Shortness of breath (principal); U09.9 Post COVID-19 condition, unspecified
CPT/HCPCS: 94060; 94726; 94729

== ENCOUNTER 2022-10-11 08:32 | Outpatient (CLI) | payer BC, SELFPAY ==
--- NOTE | ~2022-10-11 | US_ITS ---
EXAMINATION: US abdomen limited DATE: 10/11/2022 08:59 INDICATION: Elevated liver function tests TECHNIQUE: Multiple grayscale and Doppler ultrasound images of the abdomen were obtained. COMPARISON: None available FINDINGS: The head and body of the pancreas are normal. The pancreatic tail is obscured by bowel gas. The liver is normal with normal echogenicity and echotexture. No surface nodularity. Normal hepatope talia flow in the main portal vein. The gallbladder is normal with no abnormal wall thickening, pericho lecystic fluid or stones. The normal common bile duct measures 2 mm. There was no sonographic Parker sign. IMPRESSION: 1. No sonographic correlate for the patient's symptoms. Reviewed, dictated and finalized at location B. 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
== END 2022-10-11 08:33 | disposition home or self-care (01) ==
LOC: ANHIMG 08:33
PROVIDERS: PCP Family Medicine; Visit Provider Nurse Practitioner
DX: R79.89 Other specified abnormal findings of blood chemistry (principal)
CPT/HCPCS: 76705

== ENCOUNTER 2022-11-23 12:23 | Emergency (ER) | payer BC, SELFPAY ==
[2022-11-23 12:32] VITALS: BP 110/71; PULSE 82; RESP 16; TEMP 36.8; O2SAT 96
--- NOTE | 2022-11-23 12:53 | ED.URI ---
HPI - URI/Sore Throat General Chief Complaint: Upper Respiratory Infection Stated Complaint: congestion, cough Time Seen by Provider: 11/23/22 13:00 Source: patient, RN notes reviewed and old records reviewed Mode of arrival: ambulatory Limitations: no limitations History of Present Illness HPI Narrative: 57 year old female who presents to express care with complaints of 2 week duration of harsh tight cough which is keeping her up at night. Patient reports that she started with sinus drainage and congestion 2 weeks ago and symptoms have increased to cough being persistent. Patient reports that no OTC medications have helped her symptoms. Patient reports some productive cough of yellowish phlegm, denies any fevers. Patient reports that she has had Covid vaccinations and booster and also flu shot. Patient reports that she did have COVID in June of 2022 and was hospitalized. MD elicited complaint: cough, rhinorrhea, nasal congestion and other (chest congestion) Pertinent past history: other (COVID 2021 hospitalized) Onset (ago): week(s) (2 weeks) Treatments prior to arrival: cold medicine Related Data Home Medications Medication Instructions Recorded Confirmed ergocalciferol (vitamin D2) 1,250 50,000 unit PO WEEKLY 12/09/19 09/05/22 mcg (50,000 unit) capsule (Vitamin D2) estradiol 1 mg tablet 1 mg PO DAILY 12/09/19 09/05/22 levothyroxine 50 mcg tablet 50 mcg PO DAILY 12/09/19 09/05/22 (Synthroid) medroxyprogesterone 5 mg tablet 5 mg PO DAILY 12/09/19 09/05/22 multivitamin 1 tablet PO DAILY 12/09/19 09/05/22 venlafaxine 37.5 mg tablet 37.5 mg PO DAILY 12/09/19 09/05/22 ferrous sulfate-vitamin C ER 65 cap PO 09/05/22 09/05/22 mg-150 mg capsule,extended release Allergies Allergy/AdvReac Type Severity Reaction Status Date / Time No Known Allergies Allergy Unknown Verified 09/28/22 10:05 Review of Systems Review of Systems: CONSTITUTIONAL: Denies malaise, chills, sweats, or fever. EYES: Denies visual changes, redness, or discharge. ENT: Reports rhinorrhea, congestion, sinus pain,no otalgia no sore throat. CARDIOVASCULAR: Denies chest pain, palpitations, or edema. RESPIRATORY: Reports cough harsh and productive.? Denies dyspnea. GASTROINTESTINAL: Denies abdominal pain, nausea, vomiting, diarrhea SKIN: Denies rash or itching. MUSCULOSKELETAL: Denies myalgia. NEUROLOGIC: Denies headache. All systems reviewed & are unremarkable except as noted in HPI and below PMFSH Past Medical History Medical History (Updated 11/23/22 @ 13:14 by Genet Rodrigez NP) Anxiety Chronic diarrhea Colon cancer screening Elevated LFTs Hypertension Hypothyroid Surgical History Surgical History S/P breast biopsy S/P dilatation and curettage retained placenta S/P knee surgery S/P laparoscopy Family History Family History Grandparent Family history of coronary artery disease Cerebrovascular accident Mother Lung cancer Grandparent Carcinoma of colon Social History Social History Smoking status: Never smoker Second hand tobacco smoke exposure: Yes Alcohol intake: current Alcohol use details: Social Substance use: never Spiritual care concerns: No Comments At time of signature, agree with nursing past medical, surgical, social and family history. There is no relevant family history pertinent to the presenting complaint Exam Narrative: GENERAL: Well-appearing, well-nourished, and in no acute distress. HEAD: Normocephalic EYES: PERRLA, conjunctivae clear ENT: Nares clear, turbinates edematous and erythematous, clear discharge. Mucous membranes moist. TM pearly newby with dull light reflex bilaterally; no tragal tenderness. Oropharynx erythematous without lesions. Tonsils not enlarged and without exudate, no drooling, hoars
== END 2022-11-23 13:25 | disposition home or self-care (01) ==
PROVIDERS: Emergency Provider Registered Nurse; PCP Family Medicine
DX: R05.1 Acute cough (principal); J01.40 Acute pansinusitis, unspecified; F41.9 Anxiety disorder, unspecified; I10 Essential (primary) hypertension; E03.9 Hypothyroidism, unspecified
CPT/HCPCS: 99213; G0463

== ENCOUNTER → 2023-06-20 14:27 | Outpatient (CLI) | payer BC, SELFPAY ==
--- NOTE | ~2023-06-20 | MM_ITS ---
EXAMINATION: MM screening [facility] BI w mamadou HISTORY: Screening TECHNIQUE: Craniocaudal and mediolateral oblique 3-D tomosynthesis images were obtained and synthetic 2-D images were generated. CAD analysis was submitted and interpreted. COMPARISON: Comparison to multiple prior studies sequentially, with oldest reviewed study dated 11/02. BREAST PARENCHYMAL COMPOSITION: Breast composed of scattered areas of fibroglandular density FINDINGS: There is no evidence of suspicious mass, calcification, or architectural distortion to sugg est malignancy in either breast. There has been no suspicious interval change. IMPRESSION: 1. No mammographic evidence of malignancy. 2. Recommend routine screening mammography in one year. BI-RADS Category 1: Negative Reviewed, dictated and finalized at location A.
== END ==
PROVIDERS: PCP Nurse Practitioner; Visit Provider Nurse Practitioner
DX: Z12.31 Encounter for screening mammogram for malignant neoplasm of breast (principal)
CPT/HCPCS: 77063; 77067

== ENCOUNTER 2023-11-23 13:06 | Emergency (ER) | payer BC, SELFPAY ==
--- NOTE | ~2023-11-23 | XR_ITS ---
XR chest 2V DATE: 11/23/2023 13:59 INDICATION: Persistent cough TECHNIQUE: 2 views COMPARISON: 06/13/2022 portable AP chest FINDINGS: Normal heart size. No hilar or mediastinal enlargement. No pulmonary infiltrate or consolid ation, pleural effusion or pulmonary vascular congestion or pneumothorax is detected. Old healed left clavicular shaft fracture deformity. IMPRESSION: No active cardiopulmonary disease Reviewed, dictated and finalized at location A. 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
[2023-11-23 13:19] VITALS: BP 91/67; PULSE 81; RESP 16; TEMP 36.4; O2SAT 96
--- NOTE | 2023-11-23 13:53 | ED.URI ---
HPI - URI/Sore Throat General Chief Complaint: Upper Respiratory Infection Stated Complaint: Cough Time Seen by Provider: 11/23/23 13:47 Source: patient and RN notes reviewed Mode of arrival: ambulatory Limitations: no limitations History of Present Illness HPI Narrative: Patient presents today complaining of cough since November 06. She was diagnosed with COVID on November 08. She was placed on an 8 day course of doxycycline on November 12. States this did help her resolve her dark colored sputum and it is now clear again. States she cannot stop coughing. It is impeding her sleep. She has been using nebulizer and guaifenesin at home with little relief Related Data Home Medications Medication Instructions Recorded Confirmed ergocalciferol (vitamin D2) 1,250 50,000 unit PO WEEKLY 12/09/19 09/04/23 mcg (50,000 unit) capsule (Vitamin D2) estradiol 1 mg tablet 1 mg PO DAILY 12/09/19 09/04/23 levothyroxine 50 mcg tablet 50 mcg PO DAILY 12/09/19 11/23/23 (Synthroid) medroxyprogesterone 5 mg tablet 5 mg PO DAILY 12/09/19 11/23/23 multivitamin 1 tablet PO DAILY 12/09/19 11/23/23 venlafaxine 37.5 mg tablet 37.5 mg PO DAILY 12/09/19 11/23/23 ferrous sulfate-vitamin C ER 65 cap PO 09/05/22 09/04/23 mg-150 mg capsule,extended release finasteride 1 mg tablet 1 mg PO DAILY 03/06/23 09/04/23 meloxicam 15 mg tablet 15 mg PO DAILY 09/04/23 11/23/23 Allergies Allergy/AdvReac Type Severity Reaction Status Date / Time No Known Allergies Allergy Unknown Verified 11/23/23 13:52 Review of Systems Review of Systems: CONSTITUTIONAL: Denies body aches, fever, chills, or sweats. EYES: Denies visual changes, redness, or discharge. ENT: Denies rhinorrhea, congestion, sore throat, or otalgia. CARDIOVASCULAR: Denies chest pain, palpitations, or edema. RESPIRATORY: + cough GASTROINTESTINAL: Denies abdominal pain, nausea, vomiting, or diarrhea. GENITOURINARY: Denies dysuria or hematuria. SKIN: Denies rash, itching, or wounds. MUSCULOSKELETAL: Denies back pain, joint pain, or myalgia. NEUROLOGIC: Denies headache, numbness, tingling, or weakness. PSYCH: Denies depression or anxiety. [facility] Past Medical History Medical History Anxiety Chronic diarrhea Colon cancer screening Elevated LFTs Hypertension Hypothyroid Surgical History Surgical History S/P breast biopsy S/P dilatation and curettage retained placenta S/P knee surgery S/P laparoscopy Family History Family History Grandparent Family history of coronary artery disease Cerebrovascular accident Mother Lung cancer Grandparent Carcinoma of colon Social History Social History Smoking status: Never smoker Second hand tobacco smoke exposure: Yes Alcohol intake: current Alcohol use details: Social Substance use: never Lack of Transportation: No Lack of Food: Never True Current Housing: I Have Housing Concerned About Future Housing: No Difficulty Paying Gas/Electric Bills: No Difficulty Paying for Meds: No Currently Unemployed: No Education: Bachelor's Degree Difficulty w/ Childcare or Family Care: No Spiritual care concerns: No Comments At time of signature, I have reviewed and agree with nursing past medical, surgical, social and family history unless otherwise noted. Please see nursing chart for further information. There is no relevant family history pertinent to the presenting complaint Exam Narrative: GENERAL: Well-appearing, well-nourished, and in no acute distress. HEAD: Normocephalic, atraumatic. EYES: EOMI. No redness or drainage. Conjunctivae normal. ENT: Mucous membranes pink and moist. Nares clear. No rhinorrhea. TMs normal bilaterally. Throat normal. [place] mi
== END 2023-11-23 14:20 | disposition home or self-care (01) ==
PROVIDERS: Emergency Provider Nurse Practitioner; PCP Family Medicine
DX: J40 Bronchitis, not specified as acute or chronic (principal); I10 Essential (primary) hypertension; E03.9 Hypothyroidism, unspecified; F41.9 Anxiety disorder, unspecified
CPT/HCPCS: 71046; 99213; G0463

== ENCOUNTER 2024-07-21 15:02 | Outpatient (CLI) | payer OTHER, SELFPAY ==
--- NOTE | ~2024-07-21 | MM_ITS ---
EXAMINATION: MM screening [facility] w mamadou HISTORY: Screening TECHNIQUE: Craniocaudal and mediolateral oblique 3-D tomosynthesis images were obtained and synthetic 2-D images were generated. CAD analysis was submitted and interpreted. COMPARISON: Comparison to multiple prior studies sequentially, with oldest reviewed study dated 11/02. BREAST PARENCHYMAL COMPOSITION: Dense: The breasts are heterogeneously dense, which may obscure small masses FINDINGS: There is no evidence of suspicious mass, calcification, or architectural distortion to sugg est malignancy in either breast. There has been no suspicious interval change. IMPRESSION: 1. No mammographic evidence of malignancy. 2. Recommend routine screening mammography in one year. BI-RADS Category 1: Negative Reviewed, dictated and finalized at location B.
== END 2024-07-21 15:03 ==
PROVIDERS: PCP Family Medicine; Visit Provider Obstetrics & Gynecology Gynecology
DX: Z12.31 Encounter for screening mammogram for malignant neoplasm of breast (principal)
CPT/HCPCS: 77063; 77067

== ENCOUNTER 2024-11-11 16:51 | Outpatient (CLI) | payer OTHER, SELFPAY ==
[2024-11-11 17:15] LABS: Basophils Absolute Auto 0.1 K/mm3 (0.0-0.1); Basophils Percent Auto 0.7 % (0.2-1.2); Eosinophils Absolute Auto 0.2 K/mm3 (0-0.3); Eosinophils Percent Auto 1.8 % (0-4.4); Hematocrit 41.7 % (37.0-47.0); Hemoglobin 13.3 g/dL (12.0-15.0); Immature Granulocyte Absolute 0.02 K/mm3 (0.00-0.031); Immature Granulocyte Percent A 0.2 % (0-0.5); Lymphocytes Absolute Auto 1.74 K/mm3 (0.9-3.2); Lymphocytes Percent Auto 19.8 % (18.3-44.2); Mean Corpuscular HGB Conc 31.9 g/dl (32-36); Mean Corpuscular Hemoglobin 32.6 pg (26-34); Mean Corpuscular Volume 102.2 fl (80-100); Mean Platelet Volume 10.4 fl (7.4-10.4); Monocytes Absolute Auto 0.8 K/mm3 (0.1-0.6); Neutrophils Percent Auto 68.5 % (45.5-73.1); Platelet Count Result 313 k/mm3 (150-375); Red Blood Count 4.08 M/mm3 (4.2-5.4); Red Cell Distribution Width 12.1 % (11.5-14.5); White Blood Count 8.8 K/mm3 (4.5-10.0)
[2024-11-11 18:28] LABS: Folic Acid > 20.0 ng/mL (2.76->20)
== END 2024-11-11 16:52 | disposition home or self-care (01) ==
PROVIDERS: PCP Family Medicine; Visit Provider Family Medicine
DX: D75.89 Other specified diseases of blood and blood-forming organs (principal)
CPT/HCPCS: 36415; 82607; 82746; 85025

== ENCOUNTER 2025-07-27 12:23 | Outpatient (CLI) | payer OTHER, SELFPAY ==
--- NOTE | ~2025-07-27 | MM_ITS ---
EXAMINATION: MM screening [facility] BI w mamadou HISTORY: Screening TECHNIQUE: Craniocaudal and mediolateral oblique 3-D tomosynthesis images were obtained and synthetic 2-D images were generated. CAD analysis was submitted and interpreted. COMPARISON: Comparison to multiple prior studies sequentially, with oldest reviewed study dated 12/12/2018. BREAST PARENCHYMAL COMPOSITION: The breasts are heterogeneously dense, which may obscure small masses. FINDINGS: There is no evidence of suspicious mass, calcification, or architectural distortion to suggest malignancy in either breast. Scattered benign-appearing calcifications are present. IMPRESSION: 1. No mammographic evidence of malignancy. 2. Recommend routine screening mammography in one year. BI-RADS Category 2: Benign finding(s). Reviewed, dictated and finalized at location B.
--- NOTE | ~2025-07-27 | DEXA_ITS ---
Bone Density Report Name: DASHAWN OSBORN Age: 60 Sex: Female Ethnicity: White Date of : 1965 Indication: osteopenia; height loss; asthma or emphysema; Referring Provider: BONNIE MART Study: Bone densitometry was performed. Exam Date: July 27, 2025 Accession number: [id number] Bone Density: Region BMD T-score Z-score Classification AP Spine(L1-L4) 1.095 0.4 2.0 Normal Femoral Neck (Left) 0.745 -0.9 0.4 Normal Total Hip (Left) 0.780 -1.3 -0.3 Osteopenia Femoral Neck (Right) 0.707 -1.3 0.1 Osteopenia Total Hip (Right) 0.781 -1.3 -0.3 Osteopenia Total Hip Mean 0.781 -1.3 -0.3 Osteopenia World Health Organization criteria for BMD impression classify patients as: Normal (T-score at or above -1.0), Osteopenia (T-score between -1.0 and -2.5), or Osteoporosis (T-score at or below -2.5). 10-year Fracture Risk(1): Major Osteoporotic Fracture 9.5% Hip Fracture 0.9% Reported Risk Factors: [place] (), Neck BMD=0.707, BMI=26.7, alcohol use (1) FRAX(R) Version 3.08. Fracture probability calculated for an untreated patient. Fracture probability may be lower if the patient has received treatment. Previous Exams: -- Region Exam Age BMD T-score BMD Change BMD Change Date g/cm2 vs Baseline vs Previous -- AP Spine (L1-L4) 07/27/2025 60 1.095 0.4 19.1%# 3.5%* 03/27/2022 56 1.058 0.1 15.1%# 3.0%* 12/12/2018 53 1.026 -0.2 11.7%# 5.0%* 11/27/2016 51 0.977 -0.6 6.3%# 0.2% 11/22/2014 49 0.975 -0.7 6.1%# 1.0% 10/20/2012 47 0.966 -0.7 5.1%# 2.2% 10/11/2010 45 0.945 -0.9 2.8%# 0.8% 10/08/2008 43 0.938 -1.0 2.1%# 2.1%# 01/07/2003 37 0.919 Total Hip(Left) 07/27/2025 60 0.780 -1.3 -7.0%# -3.4%* 03/27/2022 56 0.807 -1.1 -3.7%# 2.4% 12/12/2018 53 0.788 -1.3 -6.0%# 4.8%* 11/27/2016 51 0.752 -1.6 -10.3%# -1.6% 11/22/2014 49 0.765 -1.5 -8.8%# -0.9% 10/20/2012 47 0.772 -1.4 -8.0%# 4.7%* 10/11/2010 45 0.737 -1.7 -12.1%# -0.8% 10/08/2008 43 0.743 -1.6 -11.4%# 2.6%# 04/20/2004 38 0.724 -1.8 -13.7%* -13.7%* 01/07/2003 37 0.839 Total Hip(Right) 07/27/2025 60 0.781 -1.3 7.6%# -1.1% 03/27/2022 56 0.790 -1.2 8.8%# 3.2% 12/12/2018 53 0.766 -1.4 5.4%# 2.9% 11/27/2016 51 0.744 -1.6 2.4%# 0.2% 11/22/2014 49 0.742 -1.6 2.2%# 2.5% 10/20/2012 47 0.724 -1.8 -0.3%# -2.4% 10/11/2010 45 0.742 -1.6 2.1%# 2.4% 10/08/2008 43 0.724 -1.8 -0.3%# -0.6%# 04/20/2004 38 0.729 -1.7 0.3% 0.3% 01/07/2003 37 0.726 -- *Denotes significance at 95% confidence level, LSC for AP Spine = 0.022 g/cm2, LSC for Total Hip = 0.027 g/cm2 # Denotes dissimilar scan types or analysis methods Clinical Information Provided by Patient: Has 3 or more alcoholic drinks per day Has used the following medications: Fosamax (i.e. alendronate) Has the following medical conditions: Asthma or Emphysema Patient maximum height was 69 Menopause Age: 49 No regular weight bearing exercise Drinks caffeinated beverages Onset of menses at age 12 Number of children 1 Impression: The patient has low bone mass, based on the Left Total Hip T-score. The patient has an estimated ten-year risk of hip fracture of 0.9% and an estimated ten-year risk of major fracture of 9.5%, based on the WHO FRAX algorithm. The patient has risk factors, including: excessive alcohol use. The BMD for the Total Hip(Left) decreased, changing by -3.4% since the last DXA exam. Discussion: BONE DENSITY IS LOW AT ONE OR MORE SKELETAL SITES. This patient's lowest T-score is low at one or more skeletal sites. It meets the World Health Organization's (WHO) criteria for ?low bone mass? (T-score between -1.0 and -2.5). The patient's 10-year risk of fracture as calculated by FRAX is less than the threshold where pharmacological therapy is recommended by the National Osteoporosis Foundation (NOF). However, all treatment decisions require clinical judgment and consideration of individual patient factors, including patient preferences, comorbidities, previous drug use, risk factors not captured in the FRAX model (e.g., frailty, falls, vitamin D deficiency, increased bone turnover, interval significant decline in bone density) and possible under or overestimation of fracture risk by FRAX. The patient should follow a healthful lifestyle (good nutrition with adequate calcium and vitamin D, and appropriate weight-bearing exercise). Follow-Up: Consider repeating this study in 2 years to reassess this patient's status, or sooner if there is some new clinical indication. Reported by: DAVID on 07/27/2025 1:09:00 PM. Reviewed, dictated and finalized at location A.
== END 2025-07-27 12:24 | disposition home or self-care (01) ==
PROVIDERS: PCP Family Medicine; Visit Provider Obstetrics & Gynecology Gynecology
DX: Z12.31 Encounter for screening mammogram for malignant neoplasm of breast (principal); Z13.820 Encounter for screening for osteoporosis; M85.89 Other specified disorders of bone density and structure, multiple sites
CPT/HCPCS: 77063; 77067; 77080